=== PATIENT | male | born 1955 | race Caucasian/White ===

== ENCOUNTER → 2018-01-11 | Day surgery (SDC) | payer OTHER ==
[~2018-01-11] VITALS: Ht 177.8 cm; Wt 90.7 kg
[~2018-01-11] MED LIST: PERCOCET 5-3251 EACH PO
--- NOTE | 2018-01-11 16:48 | Operative Report ---
Operative/Inv Procedure Report Surgery Date: 01/11/18 Name of Procedure: Robotic assisted laparoscopic bilateral inguinal hernia repair with mesh Pre-Operative Diagnosis: Bilateral inguinal hernia Post-Operative Diagnosis: Same Estimated Blood Loss: scant Surgeon/Cardboard Cutter: Fam SPENCE,Celestino Marquez/Nadya GIBSON Anesthesia: general endotracheal tube Implants: Pariah Edd mesh Operative/Procedure Note Note: After informed consent patient brought to the operating room laid supine. General anesthesia obtained his abdomen was prepped and draped. Pneumoperitoneum was achieved through a left upper quadrant varies needle at Vilchis's point. An 8 mm port was then placed to the left of the midline. 2 other 8 mm ports were then placed under direct vision a camera. No bowel injury was identified. The robot was then docked and targeted. Instruments were placed. I then broke scrub and went to the console. Patient placed in Trendelenburg position. Began our dissection on the right side. I took down the peritoneum with cautery to develop flap. Flap was then carried forth down to the direct and indirect spaces using scissor cautery. There is a large direct hernia which was reduced and reflected inferiorly. There is a small indirect cord lipoma which was delivered. Once the flap was created we turned attention to the contralateral side. In a similar fashion the flap was created and carried forth down to the direct and indirect spaces. There is no direct hernia. There is a very large cord lipoma which was reduced and reflected laterally. Once the dissection was completed, mesh and sutures were placed. Began on the right side and placed a [employer] techs flat shert skirted mesh. It was sutured to the Albert's ligament near the tubercle with 3-0 Vicryl. Was also sutured superiorly to keep in position. Peritoneal flap was then closed with a running 2-0V lock suture, absorbable. Within turned attention to the left side. In similar fashion mesh was placed and sutured. The flap was closed. [place] were extracted. Once we have the placement of the mesh and peritoneal closure the ports were removed and pneumoperitoneum evacuated. Skin incisions closed with 4-0 Vicryl. Sterile dressings were applied. Sponge needle counts are correct Findings: Direct right indirect left
== END ==
LOC: STS 03:52
DX: K40.20 Bilateral inguinal hernia, without obstruction or gangrene, not specified as recurrent (principal); F17.200 Nicotine dependence, unspecified, uncomplicated
CPT/HCPCS: 49650; 64488; S2900; C1781; J0131; J0690; J2250; J3490